=== PATIENT | male | born 1965 | race Caucasian/White ===

== ENCOUNTER 2023-10-03 14:01 | Inpatient (IN) | payer MEDICARE, OTHER ==
[~2023-10-03] VITALS: Ht 182.9 cm; Wt 97.5 kg
[2023-10-03] MEDS ORDERED: ESCI20TA PO (14:54)
[2023-10-03] MEDS ORDERED: ACET325C7 PO (14:54)
[2023-10-03] MEDS ORDERED: LORA0.5T48 PO (14:54)
[2023-10-03] MEDS ORDERED: RISP2TAB5 PO (14:54)
[2023-10-03] MEDS ORDERED: MELA3CAP2 PO (14:54)
[2023-10-03] MEDS ORDERED: OLAN10TA73 PO (14:54)
[2023-10-03 14:55] LABS: BASOPHILS % (AUTO) 0.5 % (0.0-2.0); EOSINOPHILS # (AUTO) 0.1 K/uL (0.0-0.7); EOSINOPHILS % (AUTO) 2.4 % (0.0-7.0); HEMATOCRIT 42.7 % (36.7-47.1); HEMOGLOBIN 14.3 g/dL (12.5-16.3); LYMPHOCYTES # (AUTO) 1.2 K/uL (0.8-4.8); LYMPHOCYTES % (AUTO) 20.3 % (20.5-51.5); MEAN CORPUSCULAR HEMOGLOBIN 30.3 uug (23.8-33.4); MEAN CORPUSCULAR HGB CONC 34 g/dL (32.5-36.3); MEAN CORPUSCULAR VOLUME 90.3 fL (73.0-96.2); MONOCYTES # (AUTO) 0.5 K/uL (0.1-1.30); MONOCYTES % (AUTO) 8.9 % (0.0-11.0); NEUTROPHILS % (AUTO) 67.9 % (38.5-71.5); PLATELET COUNT (AUTO) 157 K/uL (152-348); RED BLOOD CELL COUNT(AUTO) 4.73 MIL/uL (4.06-5.63); WHITE BLOOD COUNT (AUTO) 5.9 K/uL (3.6-10.2)
[2023-10-03 15:07] LABS: DIFFERENTIAL COMMENT 1
[2023-10-03 15:16] LABS: CALCIUM 9.1 mg/dL (8.5-10.1); CARBON DIOXIDE 28 mmol/L (21-32); CHLORIDE 104 mmol/L (98-107); GLUCOSE 112 mg/dL (74-106); SODIUM SERUM 142 mmol/L (136-145); UREA NITROGEN, BLOOD 12 mg/dL (7-18)
[2023-10-03 15:25] LABS: ALANINE AMINOTRANSFERASE 29 U/L (16-63); ALBUMIN 3.9 g/dL (3.4-5.0); ALKALINE PHOSPHATASE 47 U/L (50-136); ASPARTATE AMINOTRANSFERASE 7 U/L (15-37); BILIRUBIN,TOTAL 0.6 mg/dL (0.2-1.0); CREATINE KINASE, TOTAL 58 U/L (39-308); TOTAL PROTEIN, SERUM 7.4 g/dL (6.4-8.2)
[2023-10-03 15:37] LABS: *BILIRUBIN,URIN NEGATIVE (NEGATIVE); *CLARITY,URINE CLEAR (CLEAR); *COLOR,URINE YELLOW (YELLOW); *KETONES,URINE NEGATIVE (NEGATIVE); *PROTEIN,URINE NEGATIVE (NEGATIVE); *UROBILINOGEN,URINE 0.2 E.U./dl (NORMAL); LEUKOCYTE ESTERASE ,URINE NEGATIVE (NEGATIVE); NITRITE, URINE NEGATIVE (NEGATIVE); UGLUCOSE NEGATIVE (NEGATIVE)
[2023-10-03 15:39] LABS: *BLOOD, URINE TRACE (NEGATIVE)
[2023-10-03 15:50] LABS: RBC,URINE 0-3 /HPF (0-3); WBC,URINE NONE SEEN /HPF (0-3)
[2023-10-03 17:10] VITALS: BP 118/85; TEMP 97.4; O2SAT 97
[2023-10-03 20:00] VITALS: BP 99/68; TEMP 98.4; O2SAT 93
[2023-10-03] MEDS ORDERED: ONDANSETRON 4 MG/2 ML VIAL IV PRN (21:45)
[2023-10-03] MEDS ORDERED: MAGNESIUM HYDROXIDE 30 ML LIQUID UDC PO PRN (21:45)
[2023-10-03] MEDS ORDERED: REMEDY ESSENTIAL ZINC PASTE 113 GM TP PRN (21:45)
[2023-10-03] MEDS ORDERED: ACETAMINOPHEN 325 MG TABLET PO PRN (21:45)
[2023-10-03] MEDS ORDERED: ZOLPIDEM 5 MG TABLET PO PRN (21:45)
[2023-10-04 04:00] VITALS: BP 110/65; TEMP 98.1; O2SAT 95
[2023-10-04 07:31] LABS: BASOPHILS % (AUTO) 0.3 % (0.0-2.0); EOSINOPHILS # (AUTO) 0.2 K/uL (0.0-0.7); EOSINOPHILS % (AUTO) 2.9 % (0.0-7.0); HEMATOCRIT 43.4 % (36.7-47.1); HEMOGLOBIN 14.8 g/dL (12.5-16.3); LYMPHOCYTES # (AUTO) 1.3 K/uL (0.8-4.8); LYMPHOCYTES % (AUTO) 16.3 % (20.5-51.5); MEAN CORPUSCULAR HEMOGLOBIN 30.7 uug (23.8-33.4); MEAN CORPUSCULAR HGB CONC 34 g/dL (32.5-36.3); MEAN CORPUSCULAR VOLUME 90.2 fL (73.0-96.2); MONOCYTES # (AUTO) 0.7 K/uL (0.1-1.30); MONOCYTES % (AUTO) 9.6 % (0.0-11.0); NEUTROPHILS # (AUTO) 5.5 K/uL (1.8-8.9); NEUTROPHILS % (AUTO) 70.9 % (38.5-71.5); PLATELET COUNT (AUTO) 160 K/uL (152-348); RED BLOOD CELL COUNT(AUTO) 4.82 MIL/uL (4.06-5.63); WHITE BLOOD COUNT (AUTO) 7.7 K/uL (3.6-10.2)
[2023-10-04 07:37] LABS: DIFFERENTIAL COMMENT 1
[2023-10-04 07:49] LABS: CALCIUM 9.2 mg/dL (8.5-10.1); CREATININE 1.1 mg/dL (0.6-1.3); MAGNESIUM 2.2 mg/dL (1.8-2.4); PHOSPHOROUS 2.8 mg/dL (2.5-4.9); POTASSIUM 4.6 mmol/L (3.5-5.1)
[2023-10-04] MEDS: risperiDONE 2 MG TABLET PO SCH ×2 (09:01→16:51)
[2023-10-04] MEDS: ESCITALOPRAM OXALATE 10 MG TABLET PO SCH (09:01)
[2023-10-04 11:44] VITALS: BP 108/77; TEMP 98.6; O2SAT 96
[2023-10-04 16:00] VITALS: BP 101/65; TEMP 98.8; O2SAT 94
[2023-10-04] MEDS: OLANZAPINE 5 MG TABLET PO SCH (18:16)
[2023-10-04 20:00] VITALS: BP 101/62; TEMP 99.5; O2SAT 93
[2023-10-04] MEDS: MELATONIN 3 MG TABLET PO SCH (21:00)
[2023-10-05 04:00] VITALS: BP 101/60; TEMP 98.4; O2SAT 93
[2023-10-05] MEDS: risperiDONE 2 MG TABLET PO SCH ×2 (08:54→17:29)
[2023-10-05] MEDS: ESCITALOPRAM OXALATE 10 MG TABLET PO SCH (08:54)
[2023-10-05 11:51] VITALS: BP 88/63; TEMP 98.8; O2SAT 94
[2023-10-05] MEDS ORDERED: IV LACTATED RINGERS SOLUTION 1,000 ML IV ONE (12:45)
[2023-10-05 16:00] VITALS: BP 99/64; TEMP 98.3; O2SAT 93
[2023-10-05] MEDS: OLANZAPINE 5 MG TABLET PO SCH (17:29)
[2023-10-05 20:00] VITALS: BP 103/66; TEMP 98.3; O2SAT 93
[2023-10-05] MEDS: MELATONIN 3 MG TABLET PO SCH (20:12)
[2023-10-06 04:00] VITALS: BP 109/73; TEMP 99; O2SAT 95
[2023-10-06 07:06] LABS: BASOPHILS % (AUTO) 0.2 % (0.0-2.0); EOSINOPHILS # (AUTO) 0.2 K/uL (0.0-0.7); EOSINOPHILS % (AUTO) 2.7 % (0.0-7.0); HEMATOCRIT 38.9 % (36.7-47.1); HEMOGLOBIN 13.2 g/dL (12.5-16.3); LYMPHOCYTES % (AUTO) 15.5 % (20.5-51.5); MEAN CORPUSCULAR HEMOGLOBIN 30.8 uug (23.8-33.4); MEAN CORPUSCULAR HGB CONC 34 g/dL (32.5-36.3); MEAN CORPUSCULAR VOLUME 90.3 fL (73.0-96.2); MONOCYTES # (AUTO) 0.7 K/uL (0.1-1.30); MONOCYTES % (AUTO) 11.6 % (0.0-11.0); NEUTROPHILS # (AUTO) 4.3 K/uL (1.8-8.9); PLATELET COUNT (AUTO) 151 K/uL (152-348); RED BLOOD CELL COUNT(AUTO) 4.31 MIL/uL (4.06-5.63); RED CELL DISTRIBUTION WIDTH 13.5 % (12.1-16.2); WHITE BLOOD COUNT (AUTO) 6.2 K/uL (3.6-10.2)
[2023-10-06 07:28] LABS: DIFFERENTIAL COMMENT 1
[2023-10-06 07:31] LABS: CALCIUM 8.2 mg/dL (8.5-10.1); CREATININE 0.8 mg/dL (0.6-1.3); MAGNESIUM 1.7 mg/dL (1.8-2.4); PHOSPHOROUS 2.9 mg/dL (2.5-4.9); POTASSIUM 4.2 mmol/L (3.5-5.1)
[2023-10-06 08:50] VITALS: BP 128/58; TEMP 98.2; O2SAT 94
[2023-10-06 09:47] VITALS: BP 106/66; TEMP 99; O2SAT 4
[2023-10-06] MEDS: risperiDONE 2 MG TABLET PO SCH (10:06)
[2023-10-06] MEDS: ESCITALOPRAM OXALATE 10 MG TABLET PO SCH (10:06)
[2023-10-06 12:00] VITALS: BP 108/64; TEMP 98.2; O2SAT 93
[2023-10-06] MEDS ORDERED: MAGNESIUM OXIDE 400 MG TABLET PO ONE (12:30)
== END 2023-10-06 13:30 | DRG 641 ==
LOC: ER 14:01 → MEDSURG3 16:37
PROVIDERS: ADMIT Nurse Practitioner Acute Care; ATTEND Nurse Practitioner Acute Care
DX: E86.0 Dehydration (principal); I95.89 Other hypotension; J44.9 Chronic obstructive pulmonary disease, unspecified; F20.9 Schizophrenia, unspecified; F41.9 Anxiety disorder, unspecified; F32.A Depression, unspecified; I10 Essential (primary) hypertension; R79.89 Other specified abnormal findings of blood chemistry; R53.81 Other malaise
CPT/HCPCS: 36415; 83735; 84100; 84484; 85025; 93005; A4663; G0378; J2405; J7120